=== PATIENT | male | born 1965 | race African-American/Black ===

== ENCOUNTER 2019-12-21 18:18 | Inpatient (IN) ==
[2019-12-21] MEDS ORDERED: ONDANSETRON 4 MG/2 ML VIAL ONE (18:23)
[2019-12-21] MEDS ORDERED: SODIUM CHLORIDE 0.9% 2,000 ML IV STA ×2 (18:41→20:48)
[2019-12-21] MEDS ORDERED: ONDANSETRON 4 MG/2 ML VIAL IV STA (18:41)
[2019-12-21 20:10] LABS: Basophils % 0.3 % (0.0-0.8); Eosinophils # 0.1 10*3/uL (0.0-0.87); Eosinophils % 0.7 % (0.00-10.9); Hematocrit 38.3 VOL% (42.0-52.0); Hemoglobin 13.6 GM/DL (14.0-18.0); Immature Granulocytes % 0.6 %; Immature Granulocytes Absolute 0.08 #; Lymphocytes # 2.5 10*3/uL (1.4-4.0); Lymphocytes % 19.6 % (21.2-54.2); Mean Corpuscular HGB Conc 35.5 GM/DL (32-36); Mean Corpuscular Volume 76.8 FL (87-102); Mean Platelet Volume 11.4 FL (9.6-12.0); Monocytes % 6.6 % (1.7-12.7); Neutrophils % 72.2 % (38.7-73.9); Platelet Count 221 T/CUMM (130-400); Red Blood Count 4.99 MC/CUMM (3.8-5.5); Red Cell Distribution Width 13.6 % (9.3-17.3); White Blood Count 12.9 T/CUMM (4-12)
[2019-12-21 20:35] LABS: Alanine Aminotransferase 21 U/L (16-61); Albumin 3.8 G/DL (3.4-5.0); Alkaline Phosphatase 118 U/L (45-117); Amylase 107 U/L (25-115); Aspartate Amino Transferase 14 U/L (0-37); Blood Urea Nitrogen 55 MG/DL (7-18); Calcium 10.3 MG/DL (8.5-10.1); Estimated Glom Filtration Rate 20 ML/MIN; Glucose 368 MG/DL (74-106); Osmolality,Calculated 280.5 MOS/KG (273-304); Total Protein 8.5 G/DL (6.4-8.3); Troponin I < 0.015 NG/ML (0.00-0.045)
[2019-12-21] MEDS ORDERED: AZITHROMYCIN INJ 500 MG in SODIUM CHLORIDE 0.9% 250 ML IV STA (20:48)
[2019-12-21 23:29] LABS: Bacteria,Urine Occasional /HPF (Few); Hyaline Casts,Urine 8 /LPF (0-3); Mucus,Urine Occasional /LPF (Occasional); RBC,Urine 8 /HPF (0-4); Squamous Epithelial Cell,Urine Occasional /HPF (0-10); WBC,Urine 2 /HPF (0-6)
[2019-12-21 23:30] LABS: Apearance,Urine Clear (Clear); Urine Color Yellow (Yellow)
[2019-12-21 23:34] LABS: Glucose,Urine (UA) >=1000 mg/dL (Negative); Ketones,Urine Negative (Negative); Nitrite,Urine Negative (Negative); Protein,Urine 30 MG/DL
[2019-12-21 23:35] LABS: Bilirubin,Urine Negative (Negative); Blood, Urine Trace mg/dL (Negative); Urine Urobilinogen < 2.0 EU/DL (0.2-1.0)
[2019-12-22] MEDS ORDERED: hydrALAZINE 20 MG/1 ML VIAL IV PRN (00:24)
[2019-12-22] MEDS ORDERED: NICOTINE 21 MG/24 HR PATCH TRANSDERM PRN (00:24)
[2019-12-22] MEDS ORDERED: guaiFENesin/DM ER 600-30 MG TABLET PO PRN (00:24)
[2019-12-22] MEDS ORDERED: GLUCAGON 1 MG VIAL IM PRN (00:24)
[2019-12-22] MEDS ORDERED: ALUMINUM/MAGNES/SIMETH MAX STR 30 ML UDCUP PO PRN (00:24)
[2019-12-22] MEDS ORDERED: ONDANSETRON 4 MG/2 ML VIAL IV PRN (00:24)
[2019-12-22] MEDS ORDERED: diphenhydrAMINE CAP 25 MG CAPSULE PO PRN (00:24)
[2019-12-22] MEDS ORDERED: DEXTROSE 50% 25 GM/50 ML VIAL IV PRN (00:24)
[2019-12-22] MEDS ORDERED: AZITHROMYCIN INJ 500 MG in SODIUM CHLORIDE 0.9% 250 ML IV SCH (00:30)
[2019-12-22] MEDS: SODIUM CHLORIDE 0.9% 1,000 ML IV SCH ×3 (00:53→20:52)
[2019-12-22] MEDS: cefTRIAXone 1,000 MG in SYRINGE 1 EACH IV SCH (03:16)
[2019-12-22] MEDS: ACETAMINOPHEN 325 MG TABLET PO PRN ×2 (04:02→23:25)
[2019-12-22] MEDS: INSULIN REGULAR 100 UNIT/ML SUBCUT SCH ×4 (05:51→21:08)
[2019-12-22 06:18] LABS: Calcium 8.5 MG/DL (8.5-10.1); Osmolality,Calculated 287.5 MOS/KG (273-304); Thyroid Stimulating Hormone 0.664 uIU/ml (0.358-3.74)
[2019-12-22] MEDS: AZITHROMYCIN 250 MG TABLET PO SCH (08:21)
[2019-12-22] MEDS: ARIPiprazole 10 MG TABLET PO SCH (11:28)
[2019-12-22] MEDS: GABAPENTIN 100 MG CAPSULE PO SCH ×2 (12:15→20:52)
[2019-12-22] MEDS: OLANZapine 5 MG TABLET PO SCH (12:15)
[2019-12-22] MEDS: sitaGLIPtin 100 MG TABLET PO SCH (12:15)
[2019-12-22] MEDS: PANTOPRAZOLE 40 MG TABLET PO SCH (20:52)
[2019-12-22] MEDS ORDERED: INSULIN GLARGINE 100 UNIT/ML SUBCUT SCH (21:00)
[2019-12-23] MEDS: INSULIN REGULAR 100 UNIT/ML SUBCUT SCH ×3 (02:55→13:47)
[2019-12-23 04:19] LABS: Calcium 9.1 MG/DL (8.5-10.1)
[2019-12-23] MEDS: SODIUM CHLORIDE 0.9% 1,000 ML IV SCH ×2 (05:05→13:15)
[2019-12-23] MEDS: GABAPENTIN 100 MG CAPSULE PO SCH (09:05)
[2019-12-23] MEDS: ARIPiprazole 10 MG TABLET PO SCH (09:05)
[2019-12-23] MEDS: sitaGLIPtin 100 MG TABLET PO SCH (09:05)
[2019-12-23] MEDS: AZITHROMYCIN 250 MG TABLET PO SCH (09:05)
[2019-12-23] MEDS: PANTOPRAZOLE 40 MG TABLET PO SCH (09:05)
[2019-12-23] MEDS: cefTRIAXone 1,000 MG in SYRINGE 1 EACH IV SCH (09:25)
[2019-12-23] MEDS: OLANZapine 5 MG TABLET PO SCH (09:25)
[2019-12-23 17:21] VITALS: BP 136/82
[2019-12-23] MEDS ORDERED: INSULIN REGULAR 100 UNIT/ML SUBCUT SCH (21:00)
== END 2019-12-23 21:00 | DRG 469 ==
LOC: N.ED 18:18 → SUATTDRO 22:11 → N.EDINP 22:11 → N.2E 12-22 02:03 → UNDODISIN 12-23 21:00
PROVIDERS: ADMIT Internal Medicine; ATTEND Family Medicine